=== PATIENT | male | born 1980 | race Caucasian/White ===

== ENCOUNTER 2016-09-10 13:36 | Emergency (ER) | payer BC, OTHER ==
[2016-09-10 13:45] VITALS: BP 126/72; PULSE 61; RESP 16; TEMP 97.9; O2SAT 98
[2016-09-10] MEDS ORDERED: IBUPROFEN 200 MG TAB PO ONE (13:57)
[2016-09-10] MEDS ORDERED: IBUPROFEN 600 MG TAB PO ONE (13:57)
--- NOTE | 2016-09-10 14:13 | EDPHY ---
H & P Time Seen by Provider: 09/10/16 13:49 HPI/ROS: HPI Biceps injury. 35-year-old male by private vehicle with his parents. 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 He was working with his father removing a pole from the ground when he felt a sudden pop from his left anterior medial shoulder area. He then felt a pain and had a deformity in the medial aspect of his biceps at the her distal arm above the antecubital fossa. He denies any other pain or injury. He states he has some weakness with flexion of the elbow. Otherwise no distal loss of sensation. No other complaints. He is right-hand dominant. ROS: Constitutional: No fever, no chills. No weakness. Eyes: No discharge. No changes in vision. ENT: No sore throat. No nasal congestion or rhinorrhea. Respiratory: No cough. No shortness of breath. Cardiac: No chest pain, no palpitations. Gastrointestinal: No abdominal pain, no vomiting, no diarrhea. Genitourinary: No hematuria. No dysuria or increased frequency with urination. Musculoskeletal: No back pain. No neck pain. As above. No other extremity pain. Skin: No rashes. Neurological: No headache. No focal weakness or altered sensation. Past medical history: Torn left pectoralis muscle. Social history: Here with parents. Nonsmoker. Physical Exam: General Appearance: Alert, no distress. This patient is responding to questions appropriately and in full sentences. This patient appears well- hydrated and well-nourished. Eyes: Pupils equal and round no pallor or injection. No lid edema, erythema or injection. Left upper extremity exam: Significant for diffuse swelling distal medial aspect of the biceps. No ecchymosis. He also has tenderness on palpation medial anterior shoulder. Weakness and pain with passive or active flexion of the elbow. The left upper extremity is neurovascularly intact. Neurological: Motor sensory function is grossly intact. Cranial nerves are normal. Gait is normal. Skin: Warm and dry, no rashes. Extremities are symmetrical except noted. All joints range without pain or impingement except noted. Psychiatric: No agitation. No depression. Database: EKG: Imaging: Procedures: Emergency department course: Left upper extremity was placed in a sling with the elbow at 90 degrees. He was given 600 mg of ibuprofen. I spoke with the physician librarian assistant,Tanesha, for Dr. Maynor Sharp who is an upper extremity specialist with the [facility]. They will see him on Monday morning. They agree with emergency department management. This plan was discussed with the patient and his parents. They understand the follow-up plan. Return to emergency department precautions were reviewed. All of their questions were answered. The patient was discharged in good condition. Differential Diagnosis: The differential diagnosis on this patient includes but is not limited to rupture of the short head of the proximal left biceps tendon. Pectoralis rupture, elbow dislocation unlikely. This represents a partial list of diagnoses considered. These considerations are based on history, physical exam , past history, reassessment and diagnostic testing. Smoking Status: Never smoked Constitutional: Initial Vital Signs Temperature (C) 36.6 C 09/10/16 13:42 Heart Rate 61 09/10/16 13:42 Respiratory Rate 16 09/10/16 13:42 Blood Pressure 126/72 H 09/10/16 13:42 O2 Sat (%) 98 09/10/16 13:42 O2 Delivery Mode Room Air Allergies/Adverse Reactions: No Known Allergies Allergy (Unverified 09/10/16 13:44) Home Medications: Medication Instructions Recorded NK [No Known Home Meds] 09/10/16 Departure - Departure Disposition: Home, Routine, Self-Care Clinical Impression: Biceps rupture, proximal Condition: Good Instructions: Tendon Rupture (ED) Additional Instructions: Read and follow provided instructions. Follow-up with Dr. Maynor Sharp, orthopedic upper extremity specialist, Monday as discussed. Call his office Monday for appointment time. Call at 9:00 a.m.. They have your information. Ibuprofen dosin mg every 6 hours with meals for the next 3 days only. Return to the emergency department for worsening or uncontrolled pain, discoloration, numbness or weakness in her hand or other serious concerns. As discussed, periodically remove your left upper extremity from the sling and do [id number] exercises for your shoulder as described in the emergency department. Referrals: Jaspreet Sharp MD [Medical Doctor] - As per Instructions
== END 2016-09-10 14:25 | disposition home or self-care (01) ==
LOC: CED 13:36
DX: S46.912A Strain of unspecified muscle, fascia and tendon at shoulder and upper arm level, left arm, initial encounter (principal); X58.XXXA Exposure to other specified factors, initial encounter
CPT/HCPCS: A4565